=== PATIENT | male | born 1995 ===

== ENCOUNTER → 2023-07-01 | Outpatient (CLI) | payer MEDICAID ==
[2023-07-01 14:26] LABS: Basophils % (auto) 0.7 % (0.0-2.0); Eosinophils # (auto) 0.1 10 ^3/uL (0-0.8); Lymphocytes % (auto) 39.6 % (10.0-50.0); Neutrophils % (auto) 49.9 % (37.0-80.0); Nucleated Red Blood Cells % 0.1 %
[2023-07-01 14:28] LABS: Basophils # (auto) 0.1 10 ^3/uL (0-0.2); Eosinophils % (auto) 0.8 % (0.0-7.0); Hematocrit 41.5 % (41.0-53.0); Hemoglobin 13.4 g/dL (13.5-17.5); Lymphocytes # (auto) 2.8 10 ^3/uL (0.4-5.4); Mean Corpuscular Hemoglobin 23.9 pg (28.0-32.0); Mean Corpuscular Hgb Conc. 32.3 g/dL (32.0-36.0); Mean Corpuscular Volume 74.1 fL (80.0-100.0); Monocytes # (auto) 0.6 10 ^3/uL (0-1.3); Neutrophils # (auto) 3.6 10 ^3/uL (1.6-8.6); White Blood Cell 7.1 10^3/uL (4.4-10.8)
[2023-07-01 15:07] LABS: Alanine Aminotransferase 17 U/L (7-40); Albumin 4.4 g/dL (3.2-4.8); Alkaline Phosphatase 89 U/L (46-116); Anion Gap 7 (5-15); Aspartate Aminotransferase 16 U/L (13-40); BUN/Creatinine Ratio 24.5 (10.0-20.0); Bilirubin, Direct 0.2 mg/dL (<0.3); Bilirubin, Total 0.3 mg/dL (0.2-1.0); Blood Urea Nitrogen 12 mg/dL (9-23); Calcium 9.7 mg/dL (8.5-10.1); Carbon Dioxide 27 mmol/L (20-30); Chloride 95 mmol/L (98-107); Glucose 91 mg/dL (74-106); Potassium 4.5 mmol/L (3.5-5.1); Sodium 129 mmol/L (136-145); Total Protein 7.8 g/dL (5.7-8.2)
[2023-07-01 15:11] LABS: Free T3 3.15 pg/mL (2.3-4.2); Free T4 (Free Thyroxine) 0.79 ng/dL (0.89-1.76)
[2023-07-01 15:21] LABS: Magnesium 1.9 mg/dL (1.6-2.6)
[2023-07-01 15:29] LABS: % Iron Saturation 18.4 % (20-55)
== END | disposition home or self-care (01) ==
LOC: LAB 13:54
PROVIDERS: ATTEND Nurse Practitioner Gerontology
DX: Z00.01 Encounter for general adult medical examination with abnormal findings (principal); Z29.9 Encounter for prophylactic measures, unspecified; Z13.1 Encounter for screening for diabetes mellitus
CPT/HCPCS: 36415; 80053; 80076; 83036; 83540; 83550; 83735; 84439; 84443; 84481; 85025